=== PATIENT | female | born 1960 | race African-American/Black ===

== ENCOUNTER 2022-03-15 14:19 | Observation (INO) | payer BC ==
[2022-03-15] MEDS ORDERED: Aspirin Chewable 81 MG TAB ONE (14:41)
[2022-03-15] MEDS ORDERED: Nitroglycerin 0.4 MG TAB 1 EACH ONE (14:42)
[2022-03-15 14:45] LABS: #Basophils 0.1 10x3/uL (0.0-0.2); #Eosinphils 0.2 10x3/uL (0.0-0.5); #Monocytes 0.7 10x3/uL (0.0-1.1); #Neutrophils 4.2 10x3/uL (1.5-8.4); %Basophils 0.7 % (0.0-2.0); %Eosinophils 2.7 % (0.0-6.0); %Lymphocytes 29.3 % (18.0-47.0); %Monocytes 9.5 % (0.0-10.0); %Neutrophils 57.5 % (40.0-75.0); Hemoglobin 11.6 g/dL (12.0-15.5); Mean Corpuscular HGB CONC 31.4 g/dL (32.0-36.0); Mean Corpuscular Hemoglobin 27.6 pg (27.0-33.0); Mean Corpuscular Volume 87.9 fl (81.6-98.3); Mean Platelet Volume 10.5 fl (7.4-10.4); Platelet Count 297 10x3/uL (150-450); RBC Distribution Width 14.8 % (11.5-14.5); White Blood Cell (WBC) Count 7.3 10x3/uL (3.5-10.5)
[2022-03-15 15:04] LABS: ALT (SGPT) 16 U/L (8-55); AST (SGOT) 15 U/L (5-34); Albumin 4.4 g/dL (3.4-4.8); Alkaline Phosphatase 142 U/L (40-110); Anion Gap 13 mmol/L (10-20); BUN (Urea Nitrogen) 20 mg/dL (9.8-20.1); Bilirubin, Total 0.5 mg/dL (0.2-1.2); Calc. Creatinine Clearance 0 mL/min (70-130); Calcium 9.6 mg/dL (7.8-10.44); Carbon Dioxide 25 mmol/L (23-31); Chloride 106 mmol/L (98-107); Estimated GFR 58; Globulin 2.9 g/dL (2.4-3.5); Glucose 112 mg/dL (80-115); Potassium 4.3 mmol/L (3.5-5.1); Protein, Total 7.3 g/dL (5.8-8.1); Sodium 140 mmol/L (136-145)
[2022-03-15] MEDS ORDERED: Nitroglycerin 2% Ointment 1 INCH/1 GM Packet ONE (15:12)
[2022-03-15] MEDS ORDERED: Mag-Al Plus 1200 MG/1200 MG/120 MG/30 ML UDCUP ONE (20:14)
[2022-03-15] MEDS ORDERED: Lidocaine Viscous Sol 2% 15 ml UD Cup ONE (20:14)
[2022-03-15] MEDS ORDERED: Bisacodyl 5 MG TAB PO PRN (20:48)
[2022-03-15] MEDS ORDERED: HYDROcodone/Acetaminophen 5/325 mg Tablet PO PRN (20:48)
[2022-03-15] MEDS ORDERED: Ondansetron PF 4 MG/2 ML Vial IVP PRN (20:48)
[2022-03-15] MEDS ORDERED: Acetaminophen 325 MG TAB PO PRN (20:48)
[2022-03-15] MEDS ORDERED: Nitroglycerin 0.4 MG TAB (25 Tab Bottle) SL PRN (20:48)
[2022-03-15] MEDS ORDERED: Zolpidem Tartrate 5 MG TAB PO PRN (20:48)
[2022-03-15] MEDS ORDERED: Atorvastatin Calcium 40 MG TAB ONE (22:13)
[2022-03-15] MEDS ORDERED: Gabapentin 300 MG CAP ONE (22:13)
[2022-03-15] MEDS ORDERED: Famotidine 20 MG TAB ONE (22:13)
[2022-03-15 22:22] LABS: Troponin I Less than 0.010 ng/mL (< 0.028)
[2022-03-15] MEDS ORDERED: Gabapentin 300 MG CAP PO SCH (23:59)
[2022-03-15] MEDS ORDERED: Famotidine 20 MG TAB PO SCH (23:59)
[2022-03-15] MEDS ORDERED: Atorvastatin Calcium 40 MG TAB PO SCH (23:59)
[2022-03-15] MEDS ORDERED: Naproxen 500 MG TAB PO SCH (23:59)
[2022-03-15] MEDS ORDERED: Aspirin 325 MG TAB PO SCH (23:59)
[2022-03-15] MEDS ORDERED: Sodium Chloride 0.9% 1,000 ML IV SCH (23:59)
[2022-03-16 00:47] LABS: Troponin I Less than 0.010 ng/mL (< 0.028)
[2022-03-16 01:08] VITALS: BMI 42.0
[2022-03-16] MEDS ORDERED: Naproxen 500 MG TAB PO SCH (02:00)
[2022-03-16 05:11] LABS: ALT (SGPT) 14 U/L (8-55); AST (SGOT) 14 U/L (5-34); Albumin 3.8 g/dL (3.4-4.8); Alkaline Phosphatase 117 U/L (40-110); Anion Gap 12 mmol/L (10-20); BUN (Urea Nitrogen) 19 mg/dL (9.8-20.1); Bilirubin, Total 0.3 mg/dL (0.2-1.2); Calc. Creatinine Clearance 111 mL/min (70-130); Calcium 9.2 mg/dL (7.8-10.44); Carbon Dioxide 24 mmol/L (23-31); Chloride 108 mmol/L (98-107); Estimated GFR 75; Globulin 2.9 g/dL (2.4-3.5); Glucose 87 mg/dL (80-115); Protein, Total 6.7 g/dL (5.8-8.1); Sodium 140 mmol/L (136-145)
[2022-03-16 05:12] LABS: #Basophils 0.1 10x3/uL (0.0-0.2); #Eosinphils 0.2 10x3/uL (0.0-0.5); #Monocytes 0.7 10x3/uL (0.0-1.1); #Neutrophils 4.5 10x3/uL (1.5-8.4); %Basophils 0.7 % (0.0-2.0); %Eosinophils 2.4 % (0.0-6.0); %Lymphocytes 27.7 % (18.0-47.0); %Monocytes 9.7 % (0.0-10.0); Hemoglobin 10.8 g/dL (12.0-15.5); Mean Corpuscular HGB CONC 32.3 g/dL (32.0-36.0); Mean Corpuscular Hemoglobin 27.8 pg (27.0-33.0); Mean Corpuscular Volume 85.9 fl (81.6-98.3); Mean Platelet Volume 10.6 fl (7.4-10.4); Platelet Count 248 10x3/uL (150-450); RBC Distribution Width 14.9 % (11.5-14.5); Red Blood Cell (RBC) Count 3.89 10x6/uL (3.90-5.03); White Blood Cell (WBC) Count 7.5 10x3/uL (3.5-10.5)
[2022-03-16] MEDS ORDERED: Spironolactone 25 MG TAB PO SCH ×2 (08:00→21:00)
[2022-03-16] MEDS ORDERED: Carvedilol 3.125 MG TAB PO SCH (08:00)
[2022-03-16] MEDS ORDERED: Aspirin Chewable 81 MG TAB PO SCH (09:00)
[2022-03-16] MEDS ORDERED: Enoxaparin Sodium 40 MG/0.4 ML SYRINGE SC SCH (09:00)
[2022-03-16] MEDS ORDERED: Clopidogrel Bisulfate 75 MG TAB PO SCH (09:00)
[2022-03-16] MEDS ORDERED: Famotidine 20 MG TAB PO SCH (09:00)
[2022-03-16] MEDS ORDERED: NIFEdipine XL 60 MG TAB PO SCH (09:00)
[2022-03-16] MEDS ORDERED: Losartan Potassium 50 MG TAB PO SCH (09:00)
[2022-03-16 12:23] VITALS: BP 133/75; TEMP 97.9
[2022-03-16] MEDS ORDERED: Gabapentin 300 MG CAP PO SCH (21:00)
[2022-03-16] MEDS ORDERED: Atorvastatin Calcium 40 MG TAB PO SCH (21:00)
== END 2022-03-16 11:29 | disposition home or self-care (01) ==
LOC: CSHERS 14:19 → CSHERHOLD 23:14 → CSHTELE 03-16 00:57
PROVIDERS: ADMIT Internal Medicine; ATTEND Family Medicine
DX: R07.2 Precordial pain (principal); I49.1 Atrial premature depolarization; R42 Dizziness and giddiness; R94.31 Abnormal electrocardiogram [ECG] [EKG]; D64.9 Anemia, unspecified; I10 Essential (primary) hypertension; K21.9 Gastro-esophageal reflux disease without esophagitis; Z20.822 Contact with and (suspected) exposure to COVID-19; E66.9 Obesity, unspecified; Z79.82 Long term (current) use of aspirin; Z79.899 Other long term (current) drug therapy; Z88.0 Allergy status to penicillin; Z68.41 Body mass index [BMI] 40.0-44.9, adult
CPT/HCPCS: 36415; 71046; 80053; 83690; 84484; 85025; 93005; 93010; 94760; 96372; G0378; J1650; U0003; U0005